=== PATIENT | male | born 1985 | race African-American/Black ===

== ENCOUNTER 2021-01-31 18:35 | Emergency (ER) | payer OTHER, SELFPAY ==
--- NOTE | ~2021-01-31 | CT_ITS ---
EXAMINATION: CT abdomen pelvis w con DATE: 01/31/2021 23:30 INDICATION: Abdominal pain. Elevated white blood cell count. TECHNIQUE: Computed tomography (CT) of the abdomen and pelvis was performed with 100 cc Omnipaque 350 intravenous contrast. Automated exposure control and iterative reconstruction technique were employe d. Exam dose: 422.43 mGy-cm total exam DLP. COMPARISON: None. FINDINGS: The lung bases are clear. Normal heart size. No pericardial or pleural effusion. The liver, gallbladder, bile ducts, pancreas, pancreatic duct, spleen, and adrenal glands are unremar kable. 4.5 mm upper pole right renal cyst. The kidneys are otherwise unremarkable. No urinary tract calculus or hydroureteronephrosis. Normal caliber of the abdominal aorta. No intraperitoneal or retroperitoneal or pelvic mass lesion or adenopathy or ascites. Normal appendix. No bowel obstruction, bowel wall thickening, pneumatosis or intraperitoneal free air . There is diffuse moderate thickening of the urinary bladder wall which may be secondary to prostate e nlargement, less likely cystitis. Included skeletal structures are unremarkable.. IMPRESSION: Normal appendix 4.5 mm right renal cyst Diffuse thickening of the urinary bladder wall, possibly secondary to prostate enlargement; cannot ex clude cystitis, particularly given the history of elevated white blood cell count Reviewed, dictated and finalized at [facility]. Reviewed, dictated and finalized at [facility]. IMPRESSION: Normal appendix 4.5 mm right renal cyst Diffuse thickening of the urinary bladder wall, possibly secondary to prostate enlargement; cannot exclude cystitis, particularly given the history of elevate d white blood cell count
[2021-01-31 19:15] VITALS: BP 180/96; PULSE 87; RESP 18; TEMP 37.3; O2SAT 100
[2021-01-31 21:35] LABS: Basophils Absolute Auto 0.1 K/mm3 (0.0-0.1); Basophils Percent Auto 0.4 % (0.2-1.2); Eosinophils Absolute Auto 0.2 K/mm3 (0-0.3); Eosinophils Percent Auto 1.8 % (0-4.4); Hematocrit 49.1 % (42.0-52.0); Hemoglobin 15.5 g/dL (14.0-18.0); Immature Granulocyte Absolute 0.03 K/mm3 (0.00-0.031); Immature Granulocyte Percent A 0.3 % (0-0.5); Lymphocytes Percent Auto 13.6 % (18.3-44.2); Mean Corpuscular HGB Conc 31.6 g/dl (32-36); Mean Corpuscular Hemoglobin 23.2 pg (26-34); Mean Corpuscular Volume 73.5 fl (80-100); Mean Platelet Volume 9.3 fl (7.4-10.4); Monocytes Absolute Auto 0.9 K/mm3 (0.1-0.6); Neutrophils Percent Auto 75.9 % (45.5-73.1); Platelet Count Result 368 k/mm3 (150-375); Red Blood Count 6.68 M/mm3 (4.6-6.20); White Blood Count 11.8 K/mm3 (4.5-10.0)
--- NOTE | 2021-01-31 21:59 | ED.ABDPAIN ---
HPI - Abdominal Pain General Chief Complaint: Abdominal Pain Stated Complaint: abd pain, hx pancreatitis Time Seen by Provider: 01/31/21 21:39 Source: patient Mode of arrival: ambulatory Limitations: no limitations History of Present Illness HPI narrative: 45-year-old male recently diagnosed with GERD complaining of increased abdominal pain after eating hamburger and potato chips. He ate this yesterday but has been vomiting since then. With epigastric pain. No fever, also complains of lower abdominal cramping. Patient is taken Pepcid without relief. Patient was told he had GERD and told not to eat fatty foods. No diarrhea, no hematemesis, no constipation. No previous abdominal surgeries. Last vomited prior to arrival. Related Data Allergies Allergy/AdvReac Type Severity Reaction Status Date / Time No Known Allergies Allergy Verified 01/31/21 23:40 Review of Systems Review of Systems: CONSTITUTIONAL: no fever, no weight loss, no confusion EYES: no vision changes, no eye pain ENT: no rhinorrhea, no sore throat, no difficulty swallowing CARDIOVASCULAR: no chest pain, no leg edema, no palpitations RESPIRATORY: no cough, no shortness of breath, no hemoptysis GASTROINTESTINAL: positive for abdominal pain, positive for nausea, positive for vomiting, no diarrhea GENITOURINARY: no flank pain, no dysuria, no hematuria SKIN: no rash, no jaundice MUSCULOSKELETAL: no back pain, no trauma. NEUROLOGIC: No headache, no dizziness, no focal weakness PSYCHIATRIC: No hallucinations, no suicidal ideation Exam Narrative: General: alert, afebrile, answering all questions appropriately Head: normocephalic, atraumatic Eyes: EOMI bilaterally, anicteric, no injection ENT: moist mucous membranes, oropharynx patent, no rhinorrhea Neck: supple, trachea midline, no JVD Chest: equal chest rise bilaterally, no chest wall trauma noted Abd: soft, non-distended, mild BLQ tend to palpation,no rebound, no gaurding, negative Cantrell's : no CVA tenderness B, bladder non-distended EXT: no deformity noted, moving all extremities equally Skin: warm, dry, no pallor Neuro: alert, oriented x 3; CN 2-12 grossly intact, no dysarthria Psych: affect appropriate, though content normal Course Reevaluation(s) Reevaluation #1: Patient pain improved, tolerating p.o., afebrile, abdomen soft no apparent distress. Spoke at length with patient who will return if fever, intractable vomiting, worsening pain, inability to tolerate fluids or medications or any concern. Patient will take Carafate as needed and follow-up with PMD Date: 02/01/21 Time: 01:00 Vital Signs Vital signs: Vital Signs Temperature 37.3 C 01/31/21 19:15 Pulse Rate 87 01/31/21 19:15 Respiratory Rate 18 01/31/21 19:15 Blood Pressure 180/96 H 01/31/21 19:15 Pulse Oximetry 100 01/31/21 19:15 Temperature 37.3 C 01/31/21 19:15 Pulse Rate 87 01/31/21 19:15 Respiratory Rate 18 01/31/21 19:15 Blood Pressure 180/96 H 01/31/21 19:15 Pulse Oximetry 100 01/31/21 19:15 MDM - Abdominal Pain Differential Diagnosis Differential diagnosis: Likely abdominal pain, acute appendicitis, pancreatitis, small bowel obstruction and other (Hepatobiliary disease, GERD, gastritis, duodenal ulcer, electrolyte disorder dehydration.) Medical Records Attestation: I reviewed the patient's medical records. Medical records narrative: Per patient recently diagnosed with possible pancreatitis told to follow low fat diet Lab Data Attestation: I reviewed the patient's lab results. Lab results narrative: WBC elevated 11.8, electrolytes are normal, BUN 13 creatinine 1.10 bicarb is 28, no elevated anion gap. Hemoglobin 15.5 LFTs are normal, lipase is normal no evidence of hepatobiliary disease. Due to elevated WBCs CT abdomen pelvis with IV contrast was ordered. Result diagrams: 01/31/21 21:26 01/31/21 21:26 Labs: Lab Results 01/31/21 01/31/21 01/31/21 Range/Units 21:26 21:2
[2021-01-31 22:01] LABS: Add Urine Microscopic? YES; Appearance Urine Cloudy (Clear); Bilirubin Urine Negative (Negative); Blood Urine Negative (Negative); Color Urine Yellow (Yellow); Glucose Urine UA Negative (Negative); Ketones Urine 1+ mg/dL (Negative); Leukocyte Esterase Ur Negative LEU/UL (Negative); Nitrate Urine Negative (Negative); Protein Urine Negative (Negative); Specific Grav Ur 1.019 (1.001-1.035); Squamous Epithelial Cell Urine Rare /hpf (Few)
[2021-01-31 22:19] LABS: Alanine Aminotransferase 28 U/L (4-50); Albumin Level 4.7 g/dL (3.5-5.1); Alkaline Phosphatase 88 U/L (38-126); Anion Gap 8 mmol/L (8-16); Aspartate Amino Transferase 38 U/L (17-59); Bilirubin,Total 0.7 mg/dL (0.2-1.3); Blood Urea Nitrogen 13 mg/dL (9-20); Calcium 9.8 mg/dL (8.4-10.2); Carbon Dioxide 28 mmol/L (22-30); Chloride 101 mmol/L (98-107); Estimated CRCL calculation 84 ml/min; Estimated Glomerular Filt Rate > 60; Glucose 93 mg/dL (65-110); Lipase 59 U/L (23-300); Potassium 4.4 mmol/L (3.4-5.0); Sodium 137 mmol/L (137-145)
--- NOTE | 2021-01-31 23:23 | PC.NURSE ---
Pt to CT scan at this time.
[2021-01-31] MEDS: SODIUM CHLORIDE 0.9% IV 1,000 ML 999 ML IV CONT (23:41)
[2021-01-31] MEDS: KETOROLAC 30 MG/ML VIAL (*BKC) IV PUSH (23:41)
[2021-02-01 01:01] VITALS: BP 147/89; PULSE 74; RESP 15; O2SAT 100
== END 2021-02-01 01:02 | disposition home or self-care (01) ==
PROVIDERS: Family Medicine; Emergency Provider Emergency Medicine
DX: K21.9 Gastro-esophageal reflux disease without esophagitis (principal)
CPT/HCPCS: 36415; 74177; 80053; 81001; 83690; 85025; 96361; 96374; 99284; J1885; J7030; Q9967

== ENCOUNTER 2024-12-10 00:38 | Emergency (ER) | payer OTHER, SELFPAY ==
--- NOTE | ~2024-12-10 | XR_ITS ---
Examination: XR chest 1V portable Clinical History: dyspnea Comparison: None Technique: Portable AP Findings: Heart size normal. Lungs clear. No acute bony abnormality. IMPRESSION: 1. No acute cardiopulmonary findings given portable technique. Reviewed, dictated and finalized at location R.
--- OUTSIDE RECORDS SUMMARY | 2024-12-10 00:41 | XMS_ITS | Clinical Summary ---
Author Organization [facility] Address [address] [place] [address] Care Team Providers Care Workforce Advisor Name Role Phone Enrrique Senior Primary Care Provider [phone] Source Comments [facility],non-owned Affiliates and Associated Physician Practices is amultiple site organization consisting of ambulatory clinics and hospital sitesin [place], [place], [place] and [place]. This disclosure is being madepursuant to the Care Everywhere program and may not contain all information available regarding this patient. Last updated 17.[facility] Allergies No known active allergies Medications * Be aware that medications may not be up to date on this document. Alwaysverify current medications with the patient. HYDROcodone-iraj taminophen (NORCO) 5-325 MG tablet Take 1 tablet by mouth every 6 hours as needed for Pain 60 tablet 02/03/2017 Active docusate sodium (COLACE) 100 MG capsule Take 1 capsule by mouth once daily 30 capsule 02/03/2017 Active amLODIPine (NORVASC) 10 MG tablet Take 1 (one) tablet by mouth once daily 30 tablet 01/24/2021 Active famotidine (PEPCID) 20 MG tablet Take 1 (one) tablet by mouth once daily 30 tablet 01/24/2021 Active ondansetron, disintegrating, (ZOFRAN ODT) 4 MG tablet Take 1 (one) tablet by mouth every 6 hours as needed for Nausea/Vomiti ng Allow tablet to dissolve on the tongue 15 tablet 01/24/2021 Active clotrimazole (Lotrimin AF) 1 % cream Apply to affected area 3 times daily <!--EPICS-->F or 10 days<!--EPICE --> 30 g 08/30/2024 Active Active Problems Problem Noted Date Diagnosed Date Closed displaced fracture of cuboid of right mary t 01/21/2017 Open fracture of medial malleolus of right tibia 01/21/2017 Encounters Date Type Department Care Team Description 12/05/2024 6:26 AM CDT - 12/05/2024 9:09 AM CDT Emergency [facility] [address] [place] [address] Siva Kay MD Fieg, Edward Lothar, Leg swelling Discharge Disposition: Home or Self Care 10/26/2024 Telephone [facility] - ENT [address], [facility] [address] [place] [phone] Hector Villanueva MD Future Appointment 10/23/2024 Telephone [facility] - Ophthalmology [address] [facility] [place] [id number] Lon Sullivan MD Eye Problem from Last 3 Months Social History Tobacco Use Types Packs/Day Years Used Date Smoking Tobacco: Every Day Cigarettes Smokeless Tobacco: Never Alcohol Use Standard Drinks/Week Comments Yes 0 (1 standard drink = 0.6 oz pur e alcohol) per significant other AUDIT-C Answer Date Recorded Q1: How often do you have a drink containing alc ohol? Monthly or less 08/10/2023 Q2: How many drinks containi ng alcohol do you have on a typical day when you are drinking? 1 or 2 08/10/2023 Q3: How often do you have si x or more drinks on one occasion? Never 08/10/2023 Sex and Gender Information Value Date Recorded Sex Assigned at Not on file Legal Sex Male 10:19 AM CDT Gender Identity Not on file Sexual Orientation Not on file Last Filed Vital Signs Vital Sign Reading Time Taken Comments Blood Pressure 141/100 12/05/2024 8:57 AM CDT Pulse 86 12/05/2024 3:56 AM CDT Temperature 36 C (96.8 F) 12/05/2024 3:56 AM CDT Respiratory Rate 17 12/05/2024 3:56 AM CDT Oxygen Saturation 100% 12/05/2024 3:56 AM CDT Inhaled Oxygen Concentration - - Weight 72.6 kg (160 lb) 12/05/2024 3:56 AM CDT Height 175.3 cm (5' 9) 12/05/2024 3:56 AM CDT Body Mass Index 23.63 12/05/2024 3:56 AM CDT Plan of Treatment Health Maintenance Due Date Last Done Comments HIV SCREENING 2001 HEPATITIS C SCREENING 08/11/2004 DTAP/TDAP/TD VACCINES (1 - Tdap) 2005 HEPATITIS B VACCINE (1 of 3 - 19+ 3-dose series) 2005 PNEUMOCOCCAL VACCINE (1 of 2 - PCV) 2005 HPV VACCINE (1 - 3-dose SCDM series) 2013 DEPRESSION SCREENING 03/31/2024 COVID-19 VACCINE (2 - 2024-2 6 season) 2024 12/28/2022 INFLUENZA VACCINE (#1) 2024 12/28/2022 ZOSTER VACCINE (1 of 2) 2036 HIB VACCINE Aged Out No longer eligi ble based on patient's age to complete this topic MENINGOCOCCAL (Group B) VACC INE SHARED DECISION-MAKING Aged Out No longer eligibl e based on patient's age to complete this topic MENINGOCOCCAL GROUPS A/C/Y/W VACCINE Aged Out No longer eligible b ased on patient's age to complete this topic Medical Devices Implanted Type Area Energy Efficiency Engineer Device Identifier Shelf Expiration Date Model / Serial / Lot Screw 1.5mm 11mm Hand Mian Nonlock Implanted:Qty: 1 on 02/03/2017 by Ted Partida MD at [facility] Left: [employer] 1 / / Wire Fx 6in .045in Kr Tro Pnt Implanted:Qty: 1 on 02/03/2017 by Ted Partida MD at [facility] Left: [employer] 1641-09-01 5 / / Screw 1.5mm 14mm Hand Mian Nonlock Sq Implanted:Qty: 1 on 02/03/2017 by Ted Partida MD at [facility] Left: [employer] 4 / / Procedures Procedure Name Priority Date/Time Associated Diagnosis Comments ALCOHOL ETHYL BLOOD STAT 12/05/2024 7 :54 AM CDT COMPREHENSIVE METABOLIC PANEL STAT 12/05/2024 7:54 AM CDT CBC W AUTO DIFFERENTIAL STAT 12/05/2024 7:54 AM CDT from Last 3 Months Results * (ABNORMAL) CBC W AUTO DIFFERENTIAL (12/05/2024 7:54 AM CDT) WBC 8.3 4.0 - 10.7 x10E9/L 12/05/2024 8:[address] [facility] RBC Count 5.59 4.30 - 5.80 x10E12/L 12/05/2024 8:[address] [facility] Hemoglobin 13.7 13.3 - 17.5 g/dL 12/05/2024 8:[address] [facility] Hematocrit 41.4 38.7 - 51.1 % 12/05/2024 8:[address] [facility] MCV 74.1(L) 80.0 - 98.0 fL 12/05/2024 8:[address] [facility] MCH 24.5(L) 26.7 - 33.6 pg 12/05/2024 8:[address] [facility] MCHC 33.1 31.7 - 36.3 g/dL 12/05/2024 8:[address] [facility] RDW-CV 15.8(H) 11.3 - 14.8 % 12/05/2024 8:[address] [facility] Platelet Count 282 150 - 420 x10E9/L 12/05/2024 8:[address] [facility] MPV 9.9 7.8 - 11.4 fL 12/05/2024 8:[address] [facility] Neutrophil % 64.4 41.0 - 74.0 % 12/05/2024 8:[address] [facility] Lymphocyte % 25.2 17.0 - 47.0 % 12/05/2024 8:[address] [facility] Monocyte % 8.1 3.0 - 11.0 % 12/05/2024 8:[address] [facility] Eosinophil % 1.6 0.0 - 7.0 % 12/05/2024 8:[address] [facility] Basophil % 0.5 0.0 - 1.6 % 12/05/2024 8:[address] [facility] Immature Granulocytes % 0.2 0.0 - 1.0 % 12/05/2024 8:[address] [facility] Neutrophil Absolute 5.33 1.60 - 7.50 x10E9/L 12/05/2024 8:[address] [facility] Lymphocyte Absolute 2.08 1.00 - 4.40 x10E9/L 12/05/2024 8:[address] [facility] Monocyte Absolute 0.67 0.15 - 1.00 x10E9/L 12/05/2024 8:[address] [facility] Eosinophil Absolute 0.13 0.00 - 0.60 x10E9/L 12/05/2024 8:[address] [facility] Basophil Absolute 0.04 0.00 - 0.13 x10E9/L 12/05/2024 8:[address] [facility] Blood BLOOD SPECIMEN / Unknown Venipuncture / Unknown 12/05/2024 7:54 AM CDT 12/05/2024 8:08 AM T us Francie Quarles MD LAB - HEMATOLOGY ORDERABLES F inal Result [facility] [address] [place] [address], [facility] [phone] * (ABNORMAL) COMPREHENSIVE METABOLIC PANEL (12/05/2024 7:54 AM CDT) BUN 12 7 - 26 mg/dL 12/05/2024 8:[address] [facility] Creatinine 0.85 0.71 - 1.16 mg/dL 12/05/2024 8:[address] [facility] Sodium 142 136 - 145 mmol/L 12/05/2024 8:[address] [facility] Potassium 4.0 3.5 - 4.5 mmol/L 12/05/2024 8:[address] [facility] Chloride 105 98 - 107 mmol/L 12/05/2024 8:[address] [facility] CO2 22 22 - 29 mmol/L 12/05/2024 8:[address] [facility] Glucose 78 70 - 99 mg/dL 12/05/2024 8:[address] [facility] Calcium 9.0 8.4 - 10.2 mg/dL 12/05/2024 8:[address] [facility] Protein Total 8.2 6.0 - 8.3 g/dL 12/05/2024 8:[address] [facility] Albumin 4.4 3.4 - 5.0 g/dL 12/05/2024 8:[address] [facility] Bilirubin Total 0.3 0.2 - 1.2 mg/dL 12/05/2024 8:[address] [facility] Alkaline Phosphatase 133 40 - 150 U/L 12/05/2024 8:[address] [facility] ALT 42 5 - 55 U/L 12/05/2024 8:[address] [facility] AST 58(H) 5 - 34 U/L 12/05/2024 8:[address] [facility] Anion Gap 15 6 - 16 12/05/2024 8:[address] [facility] BUN/Creatinine Ratio 14 7 - 23 12/05/2024 8:[address] [facility] Osmolality Calculated 293 275 - 295 mOsm/kg 12/05/2024 8:[address] [facility] Albumin/Globulin Ratio 1.2 1.1 - 2.3 12/05/2024 8:[address] [facility] eGFR by CKD-EPI >90 >=90 mL/min/1.7 3 m2 12/05/2024 8:[address] [facility] Comment:Estimated Glomerular Filtration Rate (eGFR) calculated using the CKD-EPI Creatinine Equation (2020), per the National Kidney Foundation and [place] [employer] Nephrology recommendations. Blood BLOOD SPECIMEN / Unknown Venipuncture / Unknown 12/05/2024 7:54 AM CDT 12/05/2024 8:08 AM CDT Francie Quarles MD LAB - CHEMISTRY ORDERABLES Fi nal Result Performing Organization Address [facility]/ZIP Co de Phone Number [address] [address], [facility] [phone] * (ABNORMAL) ALCOHOL ETHYL BLOOD (12/05/2024 7:54 AM CDT) Ethanol (mg/dL) 167(H) <10 mg/dL 8:36 AM CDT [facility] Ethanol Calculated (g/dL) 0.167(H) <=0.010 g/dL 12/05/2024 8:36 AM CDT [facility] Blood BLOOD SPECIMEN / Unknown Venipuncture / Unknown 12/05/2024 7:54 AM CDT 12/05/2024 8:08 AM CDT Narrative [facility] - 12/05/2024 8:36 AM CDT Ethanol Interp <10: None Detected. Depression of CLINICAL DOCUMENTATION SPEC: >100 mg/dl Potentially Critical: >250 mg/dl Potentially Fatal >400 mg/dl Ethanol in the patient's blood will contribute to the osmolar gap. Ethanol's contribution to the osmolar gap can be estimated by dividing the concentration of ethanol in mg/dL by 4.6. This test is for clinical use only and does not equal a LEONIDES for legal purposes. Francie Quarles MD LAB - CHEMISTRY ORDERABLES Fi nal Result Performing Organization Address [facility]/ZIP Co de Phone Number [address] [address], [facility] [phone] from Last 3 Months Insurance [place] [employer] [employer] [place] [employer] Care Teams Workforce Advisor Relationship Specialty Start Date End Date Enrrique Senior [address] [place] [phone] PCP - General Family Medicine 08/28/20
[2024-12-10 00:42] VITALS: BP 158/78; PULSE 92; RESP 20; TEMP 36.8; O2SAT 100
[2024-12-10 02:07] VITALS: O2SAT 99
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
--- NOTE | 2024-12-10 03:27 | ECG_ITS ---
Test Date: 2024-12-10 03:34:11 Measurements Intervals [place] Rate: 78 P: 67 AK: 141 QRS: 87 QRSD: 83 T: 16 QT: 397 QTc: 453 Interpretive Statements SINUS RHYTHM POSSIBLE LEFT ATRIAL ENLARGEMENT [-0.1mV P WAVE IN V1/V2] NONSPECIFIC ST-T-WAVE ABNORMALITY No previous ECG available for comparison Electronically Signed On 12-10-2024 15:35:03 CDT by Jono Mcgee M.D.
[2024-12-10 04:30] VITALS: BP 148/76; PULSE 92; RESP 18; TEMP 36.7; O2SAT 99
[2024-12-10 04:31] VITALS: O2SAT 99
== END 2024-12-10 04:32 | disposition home or self-care (01) ==
PROVIDERS: Emergency Provider Emergency Medicine; PCP Family Medicine
DX: Z76.5 Malingerer [conscious simulation] (principal); Z59.00 Homelessness unspecified
CPT/HCPCS: 71045; 93005; 99283